=== PATIENT | female | born 1960 | race Caucasian/White ===

== ENCOUNTER → 2018-11-10 | Outpatient (CLI) | payer OTHER ==
--- NOTE | 2018-11-10 09:46 | PCVCIMAG ---
APPROVED REPORT Study performed: 11/10/2018 08:59:28 EXAM: Comprehensive 2D, Doppler, and color-flow Echocardiogram Patient Location: Echo lab Status: routine BSA: 2.45 HR: 58 bpmBP: 120/60 mmHg Rhythm: NSR Other Information Study Quality: Technically Difficult Indications Bradycardia Pre diabetes 2D Dimensions IVSd: 10.49 (7-11mm)LVOT Diam: 18.13 (18-24mm) LVDd: 52.72 mm LVPWs: 33.44 mm PWd: 8.50 (7-11mm)Ascending Ao: 40.98 (22-36mm) LVDs: 37.98 (25-40mm) Left Atrium: 35.20 (27-40mm) Aortic Root: 31.16 mm LV Single Plane 2CH: 48.06 % Volumes Left Atrial Volume (Systole) Single Plane 4CH: 59.79 mLSingle Plane 2CH: 50.63 mL LA ESV Index: 23.00 mL/m2 Aortic Valve AoV Peak Cuong.: 1.62 m/s AO Peak Gr.: 10.56 mmHgLVOT Max P.88 mmHg LVOT Max V: 1.10 m/s ROBIN Vmax: 1.76 cm2 Mitral Valve E/A Ratio: 1.0 MV Decel. Time: 206.30 ms MV E Max Cuong.: 0.79 m/s MV A Cuong.: 0.78 m/s TDI E/Lateral E': 9.88E/Medial E': 9.88 Medial E' Cuong.: 0.08 m/s Lateral E' Cuong.: 0.08 m/s Pulmonary Valve PV Peak Gr.: 3.36 mmHg Pulmonary Vein P Vein S: 0.59 m/sP Vein A: 0.38 m/s P Vein D: 0.54 m/sP Vein A Dur.: 76.1 msec P Vein S/D Ratio: 1.09 Left Ventricle The left ventricle is normal size. There is normal LV segmental wall motion. There is normal left ventricular wall thickness. Left ventricular systolic function is normal. The left ventricular ejection fraction is within the normal range. LVEF is 55-60%. This study is not technically sufficient to allow evaluation of the LV diastolic function. Right Ventricle The right ventricle is normal size. The right ventricular systolic function is normal. Atria The left atrium size is normal. The right atrium size is normal. Aortic Valve The aortic valve is not well visualized, grossly normal No aortic regurgitation is present. There is no aortic valvular stenosis. Mitral Valve The mitral valve is normal in structure. There is no mitral valve regurgitation noted. No evidence of mitral valve stenosis. Tricuspid Valve The tricuspid valve is normal in structure. There is no tricuspid valve regurgitation noted. Pulmonic Valve The pulmonary valve is normal in structure. There is no pulmonic valvular regurgitation. Great Vessels The aortic root is normal in size. The ascending aorta is mildly dilated (4.2cm) IVC is normal in size and collapses >50% with inspiration. Pericardium There is no pericardial effusion. <Conclusion> Technically limited study Left ventricular systolic function is normal. There is normal LV segmental wall motion. LVEF is 55-60%. The aortic valve is not well visualized, grossly normal. No aortic regurgitation or stenosis The mitral valve is normal in structure. No mitral valve regurgitation Pulmonary artery systolic pressure could not be reliably ascertained. The ascending aorta is mildly dilated (4.2cm) There is no pericardial effusion.
== END | disposition home or self-care (01) ==
LOC: PCVCIMAG 08:51
PROVIDERS: ATTEND Internal Medicine
DX: R00.1 Bradycardia, unspecified (principal)
CPT/HCPCS: 93306